=== PATIENT | male | born 1965 | race African-American/Black ===

== ENCOUNTER 2018-12-21 14:25 | Emergency (ER) | payer MEDICARE, OTHER ==
[~2018-12-21] VITALS: Ht 182.9 cm; Wt 60.3 kg
--- NOTE | 2018-12-21 14:40 | NUR ---
[id number] FRM SCHVN FOR ABDOMINAL PAIN W/ N/V X TODAY. PT HYPERTENSIVE UNIT COORDINATOR. PATIENT A/OX4, NO DSITRESS NOTED, BREATHING EVEN AND UNLABORED, ATTACHED TO THE MONITOR, IV LINE ESTABLISHED. DR. CRUZ AT BEDSIDE FOR EVAL.
[2018-12-21] MEDS ORDERED: ONDANSETRON HCL/PF 4 MG/2 ML VIAL ONE (14:50)
[2018-12-21] MEDS ORDERED: MORPHINE SULFATE INJ 4 MG/ML DISP.SYRIN ONE (14:50)
[2018-12-21 14:51] LABS: BASOPHILS % (AUTO) 0.4 % (0.0-2.0); EOSINOPHILS % (AUTO) 3.2 % (0.0-6.0); HEMATOCRIT 47 % (39-51); HEMOGLOBIN 15.6 g/dL (13.5-17.5); LYMPHOCYTES # (AUTO) 1.1 /CMM (0.8-4.8); LYMPHOCYTES % (AUTO) 17.2 % (20.0-44.0); MEAN CORPUSCULAR HGB CONC 33 g/dl (31.0-36.0); MEAN CORPUSCULAR VOLUME 102 fL (80-96); MONOCYTES # (AUTO) 0.3 /CMM (0.1-1.30); MONOCYTES % (AUTO) 4.9 % (2.0-12.0); NEUTROPHILS # (AUTO) 4.7 /CMM (1.8-8.9); NEUTROPHILS % (AUTO) 74.3 % (43.0-81.0); PLATELET COUNT (AUTO) 120 /CMM (150-450); RED BLOOD CELL COUNT(AUTO) 4.61 MIL/uL (4.5-6.0); WHITE BLOOD COUNT (AUTO) 6.3 K/uL (4.3-11.0)
[2018-12-21 14:59] LABS: CALCIUM, SERUM 9.4 mg/dL (8.5-10.1); CARBON DIOXIDE 29 mmol/L (21-32); CHLORIDE 102 mmol/L (98-107); CREATININE 1.1 mg/dL (0.6-1.3); GLUCOSE 93 mg/dL (74-106); POTASSIUM 4.7 mmol/L (3.5-5.1); SODIUM SERUM 138 mmol/L (136-145); UREA NITROGEN, BLOOD 23 mg/dL (7-18)
[2018-12-21] MEDS ORDERED: ALBU8.5H8 IH (15:00)
[2018-12-21] MEDS ORDERED: CITA20TA16 PO (15:00)
[2018-12-21] MEDS ORDERED: ONDANSETRON HCL/PF 4 MG/2 ML VIAL IVP ONE (15:00)
[2018-12-21] MEDS ORDERED: IV NS 0.9% 1,000 ML BAG IV ONE (15:00)
[2018-12-21] MEDS ORDERED: QUET100T PO (15:00)
[2018-12-21] MEDS ORDERED: TEMA15CA PO (15:00)
[2018-12-21] MEDS ORDERED: MORPHINE SULFATE INJ 2 MG/ML DISP.SYRIN IV ONE (15:00)
[2018-12-21 15:05] LABS: ALANINE AMINOTRANSFERASE 8 U/L (12-78); ALBUMIN 3.7 g/dL (3.4-5.0); ALKALINE PHOSPHATASE 91 U/L (46-116); ASPARTATE AMINOTRANSFERASE 23 U/L (15-37); BILIRUBIN,DIRECT 0.1 mg/dL (0.0-0.2); BILIRUBIN,TOTAL 0.3 mg/dL (0.2-1.0); LIPASE 115 U/L (73-393); TOTAL PROTEIN, SERUM 7.7 g/dL (6.4-8.2)
--- NOTE | 2018-12-21 15:33 | NUR ---
AMBULANCE BLS TO [facility] ETA [id number] TRIP #[id number]
[2018-12-21 16:38] LABS: APPEARANCE,URINE Clear (CLEAR); BILIRUBIN,URINE Negative (NEGATIVE); BLOOD, URINE Negative Ery/uL (NEGATIVE); COLOR,URINE Yellow (YELLOW); KETONES,URINE Negative (NEGATIVE); LEUKOCYTE ESTERASE ,URINE Negative (NEGATIVE); NITRITE, URINE Negative (NEGATIVE); PH,URINE 8.5 (5.0-8.0); PROTEIN,URINE Negative (NEGATIVE); UGLUCOSE Negative (NEGATIVE); UROBILINOGEN,URINE 0.2 EU/dL (0.2)
--- NOTE | 2018-12-21 16:40 | NUR ---
PATIENT PROVIDED SANDWICHES AND JUICES, TOLERATED WELL. NO DISTRESS NOTED. DENIES NAUSEA AND VOMITING.
--- NOTE | 2018-12-21 18:00 | NUR ---
REPORT GIVEN TO VIVIANE VENTURA FOR REPORT. PATIENT A/OX4, DENIES PAIN OR DISCOMFORT. NEEDS ATTENDED. BREATHING EVEN AND UNLABORED, REPORT GIVEN TO [employer] HAT MENDER. Addendum: 12/21/18 at 1803 by ROALCANCES IV removed. Catheter intact and site benign. Pressure and 4x4 applied to site. No bleeding noted.
[2018-12-21 18:04] VITALS: BP 141/89
== END 2018-12-21 18:04 | disposition home or self-care (01) ==
LOC: ER 14:30
DX: K52.9 Noninfective gastroenteritis and colitis, unspecified (principal); R11.2 Nausea with vomiting, unspecified; I10 Essential (primary) hypertension; J45.909 Unspecified asthma, uncomplicated; F31.9 Bipolar disorder, unspecified; F14.10 Cocaine abuse, uncomplicated; F17.200 Nicotine dependence, unspecified, uncomplicated; Z88.2 Allergy status to sulfonamides; Z88.1 Allergy status to other antibiotic agents; Z60.2 Problems related to living alone
CPT/HCPCS: 36415; 80048; 80076; 81001; 83690; 84484; 85025; 93005; 96361; 96374; 96375; 99284; 99406; J2270; J2405; J7030; 81000-TC